=== PATIENT | male | born 1950 | race Caucasian/White ===

== ENCOUNTER 2021-01-12 13:17 | Observation (INO) | payer MEDICARE ==
[~2021-01-12] VITALS: Ht 172.7 cm; Wt 95.3 kg
[2021-01-12 15:52] LABS: HEMOGLOBIN 13.3 gm/dl (14.0-17.5); RED BLOOD COUNT 4.48 M/UL (4.20-5.50); WHITE BLOOD COUNT 5.2 K/UL (4.5-11.0)
[2021-01-12 16:13] LABS: BUN/CREATININE RATIO 20 (0-10)
[2021-01-12] MEDS ORDERED: ASPIRIN CHEWABL81 MG PO (21:07)
[2021-01-12] MEDS ORDERED: SYNTHROID100 MCG PO (21:07)
[2021-01-12] MEDS ORDERED: PLAVIX 75 MG TA75 MG PO (21:07)
[2021-01-12] MEDS ORDERED: PHENYTOIN SODI200 MG PO (21:08)
[2021-01-12] MEDS ORDERED: COZAAR50 MG PO (21:08)
[2021-01-12] MEDS ORDERED: PHENYTOIN SODI300 MG PO (21:09)
[2021-01-12] MEDS ORDERED: FORTAMET500 MG PO (21:09)
[2021-01-12] MEDS ORDERED: PRAVACHOL20 MG PO (21:10)
[2021-01-12] MEDS ORDERED: ALDACTAZIDE 251 EACH PO (21:10)
[2021-01-12] MEDS ORDERED: METOPROLOL SUCC25 MG PO (21:11)
[2021-01-13 04:37] LABS: HEMOGLOBIN 13.1 gm/dl (14.0-17.5); RED BLOOD COUNT 4.46 M/UL (4.20-5.50); WHITE BLOOD COUNT 5.2 K/UL (4.5-11.0)
[2021-01-13 05:02] LABS: BUN/CREATININE RATIO 20 (0-10)
[2021-01-14 06:57] LABS: BUN/CREATININE RATIO 20 (0-10)
[2021-01-14] MEDS ORDERED: NITROGLYCERIN0.4 MG SL (13:20)
[2021-01-14] MEDS ORDERED: ISOSORBIDE MONO30 MG PO (13:20)
[2021-01-14] MEDS ORDERED: COZAAR 25MG TAB25 MG PO (13:20)
--- NOTE | 2021-01-14 15:38 | NUR ---
01/14/21 1535 REPORT CALLED TO [facility] ON PCU, BELONGINGS TAKEN TO ROOM BY SHANNON SolomonTECH)
[2021-01-15 03:14] LABS: HEMOGLOBIN 12.9 gm/dl (14.0-17.5); RED BLOOD COUNT 4.32 M/UL (4.20-5.50)
[2021-01-15 03:15] LABS: WHITE BLOOD COUNT 6.6 K/UL (4.5-11.0)
[2021-01-15 03:31] LABS: BUN/CREATININE RATIO 19 (0-10)
== END 2021-01-15 16:20 | disposition home or self-care (01) ==
LOC: ER1 13:17 → MED SURG 4 16:42 → CDU 16:42 → PROG CARE 18:54 → MED SURG 4 23:56 → PROG CARE 01-14 16:22
PROVIDERS: Emergency Medicine; Internal Medicine Interventional Cardiology; Physician Assistant Medical; ADMIT Internal Medicine Infectious Disease
PROC: 4A023N7 Measurement of Cardiac Sampling and Pressure, Left Heart, Percutaneous Approach (ICD-10-PCS; principal; 2021-01-14)
PROC: B2151ZZ Fluoroscopy of Left Heart using Low Osmolar Contrast (ICD-10-PCS; 2021-01-14)
PROC: 027105Z Dilation of Coronary Artery, Two Arteries with Two Drug-eluting Intraluminal Devices, Open Approach (ICD-10-PCS; 2021-01-14)
DX: I25.110 Atherosclerotic heart disease of native coronary artery with unstable angina pectoris (principal); T82.857A Stenosis of other cardiac prosthetic devices, implants and grafts, initial encounter; E87.1 Hypo-osmolality and hyponatremia; I10 Essential (primary) hypertension; E78.5 Hyperlipidemia, unspecified; E11.9 Type 2 diabetes mellitus without complications; G47.33 Obstructive sleep apnea (adult) (pediatric); K76.0 Fatty (change of) liver, not elsewhere classified; K74.60 Unspecified cirrhosis of liver; I49.5 Sick sinus syndrome; G30.9 Alzheimer's disease, unspecified; F02.80 Dementia in other diseases classified elsewhere, unspecified severity, without behavioral disturbance, psychotic disturbance, mood disturbance, and anxiety; E07.9 Disorder of thyroid, unspecified; K63.5 Polyp of colon; G40.909 Epilepsy, unspecified, not intractable, without status epilepticus; Z95.1 Presence of aortocoronary bypass graft; Z95.5 Presence of coronary angioplasty implant and graft; Z20.822 Contact with and (suspected) exposure to COVID-19; Z95.0 Presence of cardiac pacemaker; Z88.8 Allergy status to other drugs, medicaments and biological substances; Z87.891 Personal history of nicotine dependence; Z79.82 Long term (current) use of aspirin; Z79.02 Long term (current) use of antithrombotics/antiplatelets; Z79.84 Long term (current) use of oral hypoglycemic drugs; Z79.891 Long term (current) use of opiate analgesic; Z79.899 Other long term (current) drug therapy; Y83.2 Surgical operation with anastomosis, bypass or graft as the cause of abnormal reaction of the patient, or of later complication, without mention of misadventure at the time of the procedure
CPT/HCPCS: 36415; 71045; 80048; 80053; 80061; 82550; 82553; 82962; 83036; 83735; 83874; 84484; 85025; 85027; 85347; 93005; 96372; 96374; 99152; 99153; 99285; C1725; C1760; C1874; C1887; G0378; J1644; J2250; J2405; J3010; Q9967; U0002

== ENCOUNTER 2021-10-23 15:20 | Emergency (ER) | payer MEDICARE ==
[~2021-10-23 15:20] MED LIST: ALDACTAZIDE 251 EACH PO; ASPIRIN CHEWABL81 MG PO; COZAAR 25MG TAB25 MG PO; COZAAR50 MG PO; FORTAMET500 MG PO; ISOSORBIDE MONO30 MG PO; METOPROLOL SUCC25 MG PO; NITROGLYCERIN0.4 MG SL; PHENYTOIN SODI200 MG PO; PHENYTOIN SODI300 MG PO; PLAVIX 75 MG TA75 MG PO; PRAVACHOL20 MG PO; SYNTHROID100 MCG PO
[2021-10-23 20:09] LABS: BUN/CREATININE RATIO 17 (0-10)
[2021-10-23 22:13] LABS: HEMOGLOBIN 14.3 gm/dl (14.0-17.5); RED BLOOD COUNT 4.85 M/UL (4.20-5.50); WHITE BLOOD COUNT 8.5 K/UL (4.5-11.0)
[2021-10-23] MEDS ORDERED: OMNICEF 300 MG300 MG PO (22:31)
== END 2021-10-23 23:46 | disposition home or self-care (01) ==
LOC: ER1 15:20
PROVIDERS: Physician Assistant
DX: N30.91 Cystitis, unspecified with hematuria (principal); I51.9 Heart disease, unspecified; E11.9 Type 2 diabetes mellitus without complications; Z95.5 Presence of coronary angioplasty implant and graft; Z95.0 Presence of cardiac pacemaker; Z88.8 Allergy status to other drugs, medicaments and biological substances
CPT/HCPCS: 80053; 81001; 85025; 85610; 93005; 96374; 99284; J0696; Q9967

== ENCOUNTER 2022-01-23 19:18 | Inpatient (IN) | payer MEDICARE ==
[~2022-01-23] VITALS: Ht 172.7 cm; Wt 105.4 kg
[~2022-01-23 19:18] MED LIST changes: +OMNICEF 300 MG300 MG PO
[2022-01-23 19:44] LABS: HEMOGLOBIN 13.4 gm/dl (14.0-17.5); RED BLOOD COUNT 4.57 M/UL (4.20-5.50); WHITE BLOOD COUNT 9.1 K/UL (4.5-11.0)
[2022-01-23 20:16] LABS: BUN/CREATININE RATIO 19 (0-10)
--- NOTE | 2022-01-24 08:20 | NUR ---
RN CALLED DR. CASTELLANO ABOUT PATIENT CONCERNS FOR STARTING HEPARIN PROTOCAL. MD ORDERED RN TO KEEP PATIENT NPO FOR POSSIBLE HEART CATHETERIZATION. MD STATED SHE WOULD ASSESS PATIENT SOON POSSIBLE. RN WAITING TO INITIATE HEPARIN DRIP PENDING ASSESSMENT BY .
--- NOTE | 2022-01-24 13:30 | NUR ---
RN NOTIFIED MD OF PATIENT'S CRITICALLY HIGH CARDIAC ENZYMES. PATIENT PENDING HEART CATHETERIZATION.
[2022-01-24] MEDS ORDERED: LEVOTHYROXINE100 MCG PO (13:58)
[2022-01-24] MEDS ORDERED: ISOSORBIDE MONO30 MG PO (13:59)
[2022-01-24] MEDS ORDERED: CLOPIDOGREL75 MG PO (13:59)
[2022-01-24] MEDS ORDERED: COZAAR 25MG TAB25 MG PO (14:00)
[2022-01-24] MEDS ORDERED: PHENYTOIN SODI100 MG PO ×2 (14:00→14:01)
[2022-01-24] MEDS ORDERED: GLUCOPHAGE XR500 M1 PO (14:02)
[2022-01-24] MEDS ORDERED: METOPROLOL SUCC25 MG PO (14:02)
[2022-01-24] MEDS ORDERED: JANUVIA100 MG PO (14:03)
[2022-01-24] MEDS ORDERED: CRESTOR10 MG PO (14:03)
[2022-01-24] MEDS ORDERED: NITROSTAT0.4 MG SL (14:07)
[2022-01-24] MEDS ORDERED: MULTIVITAMIN1 EACH PO (14:09)
[2022-01-24] MEDS ORDERED: LOW DOSE ASPIRI81 MG PO (14:09)
[2022-01-24] MEDS ORDERED: VITAMIN D325 MCG PO (14:10)
[2022-01-24] MEDS ORDERED: PROAIR HFA8.5 GM INH (14:11)
--- NOTE | 2022-01-24 17:01 | NUR ---
RN ATTEMPTED TO CONTACT PCU NURSE RECEIVING PATIENT FROM [facility] [employer]PLICATION SUPPORT SPECIALIST WITH NO SUCCESS. RN ATTEMPTED TO CALL THREE TIMES.
[2022-01-24 18:54] LABS: RED BLOOD COUNT 4.42 M/UL (4.20-5.50); WHITE BLOOD COUNT 7.2 K/UL (4.5-11.0)
[2022-01-24 19:18] LABS: BUN/CREATININE RATIO 18 (0-10)
[2022-01-25 06:29] LABS: HEMOGLOBIN 12.5 gm/dl (14.0-17.5); RED BLOOD COUNT 4.27 M/UL (4.20-5.50); WHITE BLOOD COUNT 6.4 K/UL (4.5-11.0)
[2022-01-25 07:25] LABS: BUN/CREATININE RATIO 18 (0-10)
[2022-01-25] MEDS ORDERED: CLOPIDOGREL75 MG PO (13:24)
[2022-01-25] MEDS ORDERED: LIPITOR80 MG PO (13:24)
[2022-01-25] MEDS ORDERED: LOPRESSOR 25 MG25 MG PO (13:24)
== END 2022-01-25 15:50 | disposition home or self-care (01) | DRG 246 ==
LOC: ER1 19:18 → CDU 20:27 → MED SURG 4 20:27 → PROG CARE 01-24 17:08
PROVIDERS: Family Medicine; Internal Medicine; Internal Medicine Interventional Cardiology; ADMIT Internal Medicine
PROC: B24BZZZ Ultrasonography of Heart with Aorta (ICD-10-PCS; principal; 2022-01-24)
PROC: 027034Z Dilation of Coronary Artery, One Artery with Drug-eluting Intraluminal Device, Percutaneous Approach (ICD-10-PCS; 2022-01-24)
PROC: B2121ZZ Fluoroscopy of Single Coronary Artery Bypass Graft using Low Osmolar Contrast (ICD-10-PCS; 2022-01-24)
PROC: B2111ZZ Fluoroscopy of Multiple Coronary Arteries using Low Osmolar Contrast (ICD-10-PCS; 2022-01-24)
DX: T82.855A Stenosis of coronary artery stent, initial encounter (principal); I21.4 Non-ST elevation (NSTEMI) myocardial infarction; Y83.8 Other surgical procedures as the cause of abnormal reaction of the patient, or of later complication, without mention of misadventure at the time of the procedure; I25.10 Atherosclerotic heart disease of native coronary artery without angina pectoris; E03.9 Hypothyroidism, unspecified; I10 Essential (primary) hypertension; E78.5 Hyperlipidemia, unspecified; G40.909 Epilepsy, unspecified, not intractable, without status epilepticus; E11.9 Type 2 diabetes mellitus without complications; Z20.822 Contact with and (suspected) exposure to COVID-19; Z95.1 Presence of aortocoronary bypass graft; Z85.51 Personal history of malignant neoplasm of bladder; Z95.0 Presence of cardiac pacemaker; Z82.49 Family history of ischemic heart disease and other diseases of the circulatory system; Z88.1 Allergy status to other antibiotic agents; Z88.8 Allergy status to other drugs, medicaments and biological substances; J44.9 Chronic obstructive pulmonary disease, unspecified
CPT/HCPCS: ECHO; 36415; 71045; 80048; 80053; 80061; 82550; 82553; 82962; 83036; 83735; 84100; 84439; 84443; 84484; 85025; 85027; 85347; 85610; 85730; 86140; 93005; 93306; 96372; 97161; 99152; 99153; 99285; C1725; C1769; C1874; C1887; C9600; G0378; J1644; J1650; J2250; J2405; J3010; J3246; J7040; Q9967; U0002

== ENCOUNTER → 2022-07-28 | Outpatient (CLI) | payer MEDICARE ==
[~2022-07-28] MED LIST changes: +CLOPIDOGREL75 MG PO; +CRESTOR10 MG PO; +GLUCOPHAGE XR500 M1 PO; +JANUVIA100 MG PO; +LEVOTHYROXINE100 MCG PO; +LIPITOR80 MG PO; +LOPRESSOR 25 MG25 MG PO; +LOW DOSE ASPIRI81 MG PO; +MULTIVITAMIN1 EACH PO; +NITROSTAT0.4 MG SL; +PHENYTOIN SODI100 MG PO; +PROAIR HFA8.5 GM INH; +VITAMIN D325 MCG PO
== END ==
LOC: KOH-I 13:33
DX: I25.119 Atherosclerotic heart disease of native coronary artery with unspecified angina pectoris (principal); G45.9 Transient cerebral ischemic attack, unspecified; G45.1 Carotid artery syndrome (hemispheric); I11.0 Hypertensive heart disease with heart failure; I50.42 Chronic combined systolic (congestive) and diastolic (congestive) heart failure
CPT/HCPCS: 93880